=== PATIENT | female | born 1960 | race Asian ===

== ENCOUNTER 2020-11-07 18:32 | Emergency (ER) | payer OTHER, SELFPAY ==
[~2020-11-07] VITALS: Ht 157.5 cm; Wt 59.0 kg
--- NOTE | 2020-11-07 18:35 | NUR ---
PT TAKEN TO BED 05 VIA W/C.
[2020-11-07 18:56] VITALS: BP 115/53
[2020-11-07] MEDS ORDERED: AZITHROMYCIN 500 MG in DEXTROSE 5% 250 ML IV ONE (19:00)
[2020-11-07] MEDS ORDERED: cefTRIAXone 2,000 MG in DEXTROSE 5% 100 ML IV ONE (19:00)
[2020-11-07] MEDS ORDERED: METF1000 PO (19:03)
[2020-11-07] MEDS ORDERED: GLIP5TER PO (19:08)
[2020-11-07] MEDS ORDERED: CA C1TAB15 PO (19:08)
[2020-11-07] MEDS ORDERED: ACET325C8 PO (19:08)
--- NOTE | 2020-11-07 19:15 | NUR ---
RECEIVED PT IN BED 5 WITH CC CHEST PAIN AND GENERAL MALAISE X 2 DAYS. C/O 8/10 PAIN. DAUGHTER REPORTS THAT ALL FAMILY MEMBERS IN HOUSEHOLD HAD COVID 2 WEEKS AGO. DAUGHTER REMAINS AT BEDSIDE TO TRANSLATE. PT SPEAKS PARAG[place]. ATTACHED TO CM = SR, PULSE OX 89% ON R/A, PLACED ON 2L N/C, O2 SAT 94-95%.
--- NOTE | 2020-11-07 19:30 | NUR ---
SL 20G RT A/C
[2020-11-07] MEDS ORDERED: DEXAMETHASONE 10 MG/ML VIAL IVP ONE (19:40)
--- NOTE | 2020-11-07 19:45 | NUR ---
IVAB BEGUN. DAUGHTER ASKING FOR LAB RESULTS. DAUGHTER DOES NOT WANT ANYTHING GIVEN WITHOUT LAB RESULTS. DAUGHTER IS ALSO SAYS THAT SHE WILL ONLY KEEP HER MOTHER HERE IF MONOCLONAL ANTIBODY TREATMENT IS ORDERED.DAUGHTER IS UNAWARE OF THE TREATMENT BUT SAYS SHE HAS HEARD IT WORKS. TIME GIVEN FOR ANSWERING QUESTIONS, DAUGHTER APPEARS TO HAVE ANSWERS AFTER SPEAKING WITH FAMILY.
[2020-11-07] MEDS ORDERED: cefTRIAXone 2,000 MG VIAL ONE (20:01)
[2020-11-07] MEDS ORDERED: AZITHROMYCIN 500 MG INJ VIAL IV ONE (20:02)
[2020-11-07 20:23] LABS: BASOPHILS % (AUTO) 0.1 % (0.0-2.0); HEMOGLOBIN 12.6 g/dL (12.0-16.0); LYMPHOCYTES # (AUTO) 0.6 K/uL (2.5-16.5); LYMPHOCYTES % (AUTO) 12.2 % (20.5-51.1); MEAN CORPUSCULAR HEMOGLOBIN 29 pg (27-31); MEAN CORPUSCULAR HGB CONC 33 g/dL (33-37); MEAN CORPUSCULAR VOLUME 87.1 fL (80-94); MONOCYTES # (AUTO) 0.4 K/uL (0.8-1.0); NEUTROPHILS # (AUTO) 4.1 K/uL (1.8-7.7); NEUTROPHILS % (AUTO) 79.7 % (42.2-75.2); PLATELET COUNT (AUTO) 196 K/uL (140-450); RED BLOOD CELL COUNT(AUTO) 4.36 MIL/uL (4.20-5.40); RED CELL DISTRIBUTION WIDTH 13.5 % (11.6-13.7); WHITE BLOOD COUNT (AUTO) 5.1 K/uL (4.8-10.8)
[2020-11-07 20:31] LABS: PROTHROMBIN TIME 9.2 secs (10.8-13.4)
[2020-11-07 20:37] LABS: ALBUMIN 2.9 g/dL (3.4-5.0); ANION GAP 11.3 (8-16); CARBON DIOXIDE 28.3 mmol/L (21-32); CREATININE 0.5 mg/dL (0.6-1.3); POTASSIUM 4.6 mmol/L (3.5-5.1); TOTAL BILIRUBIN 0.5 mg/dL (0.0-1.0)
[2020-11-07 21:17] LABS: RSV NEGATIVE (NEGATIVE)
[2020-11-07] MEDS ORDERED: remdesivir COMMUNICATION ORDER 1 EA MISC MC PRN (21:45)
--- NOTE | 2020-11-07 21:45 | NUR ---
DR. DAVIS AT BEDSIDE SPEAKING AT LENGTH TO PATIENT AND HER DAUGHTER. DAUGHTER ASKING MANY QUESTIONS AND NOT WAITING FOR ANSWERS. TELLING DR SHE IS GOING TO TAKE HER MOTHER TO [facility]. PTS DAUGHTER CONTINUES TO ASK ABOUT MONOCLONAL ANTIBODY TREATMENT, ADDITIONAL INFORMATION GIVEN. PTS DAUGHTER NOT SATISFIED WITH ANSWERS
--- NOTE | 2020-11-07 22:34 | NUR ---
Patient does not wish to proceed with medical care recommended by . Patient given information related to possible complications, up to and including , which could occur as a result of leaving hospital at this time. Patient verbalizes understanding of risks involved leaving against medical advice. Patient has signed AMA form.
== END 2020-11-07 22:34 | disposition left against medical advice (07) ==
LOC: MED 18:32
DX: U07.1 COVID-19 (principal); J12.82 Pneumonia due to coronavirus disease 2019; J96.91 Respiratory failure, unspecified with hypoxia; E11.9 Type 2 diabetes mellitus without complications
CPT/HCPCS: 36415; 71045; 80053; 82550; 83605; 83880; 84484; 85025; 85610; 85730; 87040; 87420; 87426; 87804; 93005; 96365; 96367; 96375; 99291; J0456; J0696; J1100; J7042; J7060

== ENCOUNTER 2023-11-14 19:17 | Emergency (ER) | payer OTHER ==
[~2023-11-14] VITALS: Ht 157.5 cm; Wt 59.6 kg
[~2023-11-14 19:17] MED LIST: ACET325C8 PO; CA C1TAB15 PO; GLIP5TER PO; METF-1274 PO
[2023-11-14 19:43] VITALS: BP 126/76; PULSE 77; RESP 16; TEMP 98.6; O2SAT 97
== END 2023-11-14 21:33 | disposition home or self-care (01) ==
LOC: MED 19:17
DX: S92.351A Displaced fracture of fifth metatarsal bone, right foot, initial encounter for closed fracture (principal); W01.198A Fall on same level from slipping, tripping and stumbling with subsequent striking against other object, initial encounter; Y93.89 Activity, other specified; Y92.89 Other specified places as the place of occurrence of the external cause; Y99.8 Other external cause status
CPT/HCPCS: 29515; 73610; 73630; 99284